=== PATIENT | male | born 1945 | race Caucasian/White ===

== ENCOUNTER 2023-12-09 18:28 | Emergency (ER) | payer OTHER ==
[2023-12-09 18:42] VITALS: BP 180/83; PULSE 68; RESP 17; TEMP 98.7; BMI 30.1
== END 2023-12-09 20:51 | disposition home or self-care (01) ==
LOC: JER 18:28
DX: S60.512A Abrasion of left hand, initial encounter (principal); M25.551 Pain in right hip; R07.89 Other chest pain; V04.90XA Pedestrian on foot injured in collision with heavy transport vehicle or bus, unspecified whether traffic or nontraffic accident, initial encounter; Y92.410 Unspecified street and highway as the place of occurrence of the external cause; Y93.01 Activity, walking, marching and hiking
CPT/HCPCS: 71046-TC-FY; 99283-25